=== PATIENT | male | born 1965 | race Caucasian/White ===

== ENCOUNTER 2017-02-04 11:57 | Outpatient (CLI) | payer MEDICAID | END 2017-02-04 11:58 | disposition home or self-care (01) | DX: M19.012 Primary osteoarthritis, left shoulder (principal); M19.011 Primary osteoarthritis, right shoulder ==

== ENCOUNTER 2018-01-17 14:33 | Emergency (ER) | payer MEDICAID ==
[2018-01-17 15:24] VITALS: BP 127/77
[2018-01-17] MEDS ORDERED: DEXAMETHASONE 10 MG/ML VIAL PO STA (16:09)
--- NOTE | 2018-01-17 16:49 | ED Physician Documentation ---
History of Present Illness - Stated complaint Stated Complaint: RT SHOULDER PX - Chief complaint Chief Complaint: General - History obtained from History obtained from: Patient - History of Present Illness Timing: How many years ago (2) - Additonal information Additional information: 52-year-old male with chronic orthopedic injuries has not been able to secure a supply of pain medicines for when he needs these. He feels that he has some current inflammation in both of his shoulders and is uncomfortable. He has not been able to complete his paperwork for SSI. He has been into see the orthopedic surgeon at the [facility] who is indicated there is no surgery that will fix his shoulder. Review of Systems Constitutional: denies: Fever Eyes: denies: Decreased vision Ears: denies: Ear pain Nose: denies: Congestion Throat: denies: Sore throat Cardiac: denies: Chest pain / pressure, Palpitations Respiratory: denies: Dyspnea, Cough GI: denies: Abdominal Pain, Nausea, Vomiting : denies: Dysuria, Frequency Skin: denies: Rash Musculoskeletal: reports: Back pain, Joint pain. denies: Neck pain, Joint swelling Neurologic: denies: Generalized weakness, Focal weakness, Numbness PD PAST MEDICAL HISTORY - Past Medical History Cardiovascular: None Respiratory: None Neuro: None Endocrine/Autoimmune: None GI: None : None HEENT: None Psych: None Musculoskeletal: Chronic back pain Derm: None - Past Surgical History Past Surgical History: Yes Ortho: Rotator cuff repair - Present Medications Home Medications: Ambulatory Orders Medication Instructions Recorded Confirmed No Known Home Medications [No 01/17/18 01/17/18 Known Home Medications] - Allergies Allergies/Adverse Reactions: Allergies Allergy/AdvReac Type Severity Reaction Status Date / Time No Known Drug Allergies Allergy Verified 01/17/18 15:24 - Social History Does the pt smoke?: Yes Smoking Status: Current every day smoker Does the pt drink ETOH?: Yes Does the pt have substance abuse?: Yes - Immunizations Immunizations are current?: Yes - POLST Patient has POLST: No PD ED PE NORMAL - Vitals Vital signs reviewed: Yes (normal ) - General General: Alert and oriented X 3, No acute distress, Well developed/nourished - HEENT HEENT: Atraumatic, PERRL, EOMI - Neck Neck: Supple, no meningeal sign, No bony TTP - Respiratory Respiratory: No respiratory distress - Derm Derm: Normal color, Warm and dry, No rash - Extremities Extremities: Other (There is deformity to the deltoid on the right with surgical scar. The patient appears to be able to move the shoulder in a full ROM and this does not appear to cause pain to the patient. ) - Neuro Neuro: No motor deficit, No sensory deficit Eye Opening: Spontaneous Motor: Obeys Commands Verbal: Oriented GCS Score: 15 - Psych Psych: Normal mood, Normal affect Results - Vitals Vitals: Oxygen O2 Source Room air PD MEDICAL DECISION MAKING - ED course Complexity details: reviewed old records, considered differential, d/w patient ED course: 52 y/o male with a history of prior orthopedic injuries that are old and apparently causing some pain. He is not able to obtain pain medications from his orthopedic doctor or his primary care doctor. His injuries are old and he is not on pain management. I have indicated to the patient that we are not able to provide narcotic for chronic pain. He is given a single dose of dexamethasone. He seems to have some trouble getting his paper work together for SSI and I offered social work but they were not available. Departure - Departure Disposition: 01 Home, Self Care Clinical Impression: Chronic right shoulder pain Condition: Stable Instructions: ED Chronic Pain Management, ED Shoulder Pain [facility] Follow-Up: Mark Renner MD [Credentialed Staff Provider] - Discharge Date/Time: 01/17/18 17:15
== END 2018-01-17 17:15 | disposition home or self-care (01) ==
LOC: ED 14:33
DX: M25.511 Pain in right shoulder (principal); G89.29 Other chronic pain; F17.200 Nicotine dependence, unspecified, uncomplicated
CPT/HCPCS: 99281; 99283

== ENCOUNTER 2020-06-18 03:04 | Outpatient (CLI) | payer MEDICAID | END 2020-06-18 03:05 | disposition critical access hospital (66) | LOC: EMS 03:04 | PROVIDERS: ATTEND Surgery | DX: R14.0 Abdominal distension (gaseous) (principal) | CPT/HCPCS: A0425; A0429 ==

== ENCOUNTER 2020-06-18 03:23 | Emergency (ER) | payer MEDICAID ==
--- NOTE | 2020-06-18 03:41 | ED Physician Documentation ---
History of Present Illness - Stated complaint Stated Complaint: CONSTIPATION - History obtained from History obtained from: Patient, EMS - History of Present Illness Timing: Yesterday Improved by: nothing Worsened by: no exacerbating factors - Additonal information Additional information: BIBA. patient does not provide clear chief complaint, provides more information than requested to simple questions, often tangential. he was seen at ED 2 days ago, transferred to [facility] where he underwent testing that showed trace ascites, multiple liver masses, and portal vein thrombosis (discharge summary faxed to me and reviewed). he presents at this time with sensation of bloating and constipation and, after much discussion, he is able to tell me this js his chief complaint at this time. Review of Systems Constitutional: reports: Reviewed and negative Cardiac: reports: Reviewed and negative Respiratory: reports: Reviewed and negative GI: reports: Abdominal Pain, Abdominal Swelling, Constipation. denies: Vomiting : denies: Dysuria, Frequency Musculoskeletal: reports: Extremity swelling Neurologic: denies: Altered mental status PD PAST MEDICAL HISTORY - Past Medical History Cardiovascular: None Respiratory: None Endocrine/Autoimmune: None GI: None : None HEENT: None Psych: None Musculoskeletal: Chronic back pain Derm: None - Past Surgical History Past Surgical History: Yes Ortho: Rotator cuff repair - Present Medications Home Medications: Ambulatory Orders Medication Instructions Recorded Confirmed Lisinopril [Prinivil] 10 mg PO DAILY 05/25/20 05/25/20 - Allergies Allergies/Adverse Reactions: Allergies Allergy/AdvReac Type Severity Reaction Status Date / Time No Known Drug Allergies Allergy Verified 05/25/20 23:55 - Social History Does the pt smoke?: Yes Smoking Status: Current every day smoker Does the pt drink ETOH?: Yes Does the pt have substance abuse?: Yes - Immunizations Immunizations are current?: Yes - POLST Patient has POLST: No PD ED PE NORMAL - Vitals Vital signs reviewed: Yes - General General: Alert and oriented X 3, No acute distress, Well developed/nourished - Neck Neck: Supple, no meningeal sign - Cardiac Cardiac: RRR, No murmur - Respiratory Respiratory: No respiratory distress, Clear bilaterally - Abdomen Abdomen: Soft, Non tender, Non distended - Back Back: No CVA TTP - Derm Derm: No rash PD ED PE EXPANDED - Extremities Extremities: Pedal edema bilateral (2+ pitting) Results - Vitals Vitals: Vital Signs - 24 hr 06/18/20 06/18/20 03:35 05:39 Temperature 36.2 C L Heart Rate 106 H 94 Respiratory 24 16 Rate Blood Pressure 130/97 H 130/87 H O2 Saturation 98 97 Oxygen O2 Source Room air PD MEDICAL DECISION MAKING - ED course Complexity details: reviewed old records, considered differential, d/w patient ED course: has appointment scheduled for tomorrow. he indicates to me he might be out of one or more of his medications, but does not know what medications he is on nor which one(s) he might be out of. he also has a large, spider in a plastic bag with him; he is worried that t he spider might have bitten his leg, but there is no evidence of infection nor inflammation of either BLE. given magnesium citrate to drink once he is home for possible constipation. given his recent extensive testing ([facility] and [facility]), testing not performed tonight for his vague c/o constipation. I emphasized the importance of follow up with his doctors, encouraged to return to ED if worse Departure - Departure Disposition: 01 Home, Self Care Clinical Impression: Constipation Condition: Good Instructions: ED Abdominal Pain Unkn Cause Follow-Up: Segundo Aguilar MD [Primary Care Provider] - Discharge Date/Time: 06/18/20 05:39
[2020-06-18] MEDS ORDERED: MAGNESIUM CITRATE 296 ML BOTTLE PO STA (05:26)
[2020-06-18 05:39] VITALS: BP 130/87
== END 2020-06-18 05:39 | disposition home or self-care (01) ==
LOC: EDUNIT# → ED 03:23
DX: K59.00 Constipation, unspecified (principal); R60.9 Edema, unspecified; F17.200 Nicotine dependence, unspecified, uncomplicated
CPT/HCPCS: 99283; A9270